=== PATIENT | male | born 1945 | race Asian ===

== ENCOUNTER 2018-01-02 13:38 | Emergency (ER) | payer MEDICARE, OTHER ==
[~2018-01-02] VITALS: Ht 170.2 cm; Wt 89.0 kg
[~2018-01-02 13:38] MED LIST: METO-93 PO; SIMV80TA3 PO; potassium
[2018-01-02] MEDS ORDERED: WARF5TAB PO (14:20)
[2018-01-02 14:29] VITALS: BP 150/101
== END 2018-01-02 14:33 | disposition home or self-care (01) ==
LOC: ED 14:31
DX: R05 Cough (principal)
CPT/HCPCS: 71046; 99284

== ENCOUNTER 2019-11-12 15:23 | Emergency (ER) | payer MEDICARE, OTHER ==
[~2019-11-12] VITALS: Ht 167.6 cm; Wt 90.5 kg
[~2019-11-12 15:23] MED LIST changes: +SIMV80TA18 PO; -SIMV80TA3 PO; +WARF5TAB PO
[2019-11-12 15:28] VITALS: BP 145/94
--- NOTE | 2019-11-12 15:33 | NUR ---
DATA TECHNICIAN: PT PLACED IN WHEELCHAIR FOR TRANSPORT TO ROOM.
[2019-11-12] MEDS ORDERED: HYDROcodone/APAP 5/325 TABLET ONE (15:52)
[2019-11-12] MEDS ORDERED: HYDROcodone/APAP 5/325 TABLET PO ONE (16:00)
--- NOTE | 2019-11-12 16:16 | NUR ---
MEDICATED FOR PAIN BEHIND RIGHT KNEE AND AWAITING VASCULAR STUDY
== END 2019-11-12 17:35 | disposition home or self-care (01) ==
LOC: ED 15:43
DX: S86.111A Strain of other muscle(s) and tendon(s) of posterior muscle group at lower leg level, right leg, initial encounter (principal); I10 Essential (primary) hypertension; M19.90 Unspecified osteoarthritis, unspecified site; X58.XXXA Exposure to other specified factors, initial encounter; Y93.89 Activity, other specified; Y92.89 Other specified places as the place of occurrence of the external cause; Y99.8 Other external cause status
CPT/HCPCS: 99284